=== PATIENT | male | born 1960 | race Caucasian/White ===

== ENCOUNTER 2025-04-18 08:06 | Outpatient (CLI) | payer OTHER, SELFPAY ==
[2025-04-18 09:13] LABS: Albumin* 4.1 g/dL (3.3-5.0); Chloride* 95 mmol/L (96-114); Potassium* 4.4 mmol/L (3.6-5.1); Sodium* 132 mmol/L (135-149)
[2025-04-18 09:15] LABS: Cholesterol* 288 mg/dL (90-199)
[2025-04-18 09:16] LABS: Alanine Aminotransferase* 27 U/L (4-50); Alkaline Phosphatase* 89 U/L (40-150); Anion Gap 7 mEq/L (7-15); Aspartate Amino Transferase* 25 U/L (12-35); Bilirubin Total* 0.6 mg/dL (0.1-1.5); Blood Urea Nitrogen* 12 mg/dL (7-30); Calcium* 9.6 mg/dL (8.4-10.6); Carbon Dioxide* 30 mmol/L (20-32); Creatinine* 0.5 mg/dL (0.5-1.5); Estimated Glomerular Filt Rate 113 ml/min; Glucose* 331 mg/dL (60-115); HDL Cholesterol* 26 mg/dL (>=40); Total Protein* 7.3 g/dL (6.0-8.3)
[2025-04-18 09:28] LABS: Basophils Absolute Auto 0.03 K/uL (0.00-0.30); Basophils Percent Auto 0.5 % (0.0-3.0); Eosinophils Absolute Auto 0.17 K/uL (0.00-0.50); Eosinophils Percent Auto 2.7 % (0.0-7.0); Hemoglobin* 17.1 gm/dL (13.5-17.5); Lymphocytes Absolute Auto 1.75 K/uL (0.90-2.90); Lymphocytes Percent Auto 27.7 % (20-44); Mean Corpuscular HGB Conc 34 gm/dL (32-36); Mean Corpuscular Hemoglobin 29 pg (26-34); Mean Corpuscular Volume 86 fL (80-100); Monocytes Percent Auto 6.2 % (0.0-11.0); Neutrophils Absolute Auto 3.98 K/uL (1.7-7.0); Neutrophils Percent Auto 62.9 % (42.0-72.0); Platelet Count* 199 K/uL (140-440); RDW Coefficient of Variation % 12.8 % (11.5-15.5); Red Blood Count 5.84 m/uL (4.30-5.90); White Blood Count* 6.32 K/uL (4.50-11.00)
[2025-04-18 09:31] LABS: Slide Review Reflex No
[2025-04-18 11:09] LABS: Triglycerides* 4231 mg/dL (40-149)
== END 2025-04-18 08:07 | disposition home or self-care (01) ==
LOC: NPINS 08:07
PROVIDERS: Visit Provider Family Medicine
DX: E11.59 Type 2 diabetes mellitus with other circulatory complications (principal); K21.9 Gastro-esophageal reflux disease without esophagitis; E78.5 Hyperlipidemia, unspecified; F25.9 Schizoaffective disorder, unspecified; E11.69 Type 2 diabetes mellitus with other specified complication
CPT/HCPCS: 80053; 80061; 82306; 83036; 84443; 85025